=== PATIENT | female | born 1990 | race American Indian/Alaskan Native ===

== ENCOUNTER 2019-12-12 20:50 | Emergency (ER) | payer MEDICAID ==
[2019-12-12 23:25] LABS: Basophils # (Auto) 0.1 K/mm3 (0.0-0.1); Basophils % (Auto) 0.6 % (0.0-1.8); Eosinophils % (Auto) 0.1 % (0.0-4.3); Hematocrit 42.5 % (30.3-42.9); Hemoglobin 14.5 gm/dl (10.1-14.3); Lymphocytes # (Auto) 1.6 K/mm3 (1.2-5.4); Lymphocytes % (Auto) 14.4 % (13.4-35.0); Mean Corpuscular HGB Conc 34 % (30-34); Mean Corpuscular Volume 89 fl (79-97); Monocytes # (Auto) 0.8 K/mm3 (0.0-0.8); Monocytes % (Auto) 7.4 % (0.0-7.3); Platelet Count 261 K/mm3 (140-440); Red Blood Count 4.79 M/mm3 (3.65-5.03); Red Cell Distribution Width 15.2 % (13.2-15.2)
[2019-12-12 23:52] LABS: Blood Urea Nitrogen 7 mg/dL (7-17); Calcium 9.8 mg/dL (8.4-10.2); Hemolysis Index 11
[2019-12-12 23:58] LABS: BUN/Creatinine Ratio 12
--- NOTE | 2019-12-13 00:29 | XRay Report ---
CHEST 1 VIEW, 12/12/2019 11:07 PM CLINICAL INFORMATION/INDICATION: Chest pain COMPARISON: None FINDINGS: SUPPORT DEVICES: None. HEART: The cardiac silhouette is normal in size. LUNGS/PLEURA: The lungs are well expanded and appear clear. ADDITIONAL FINDINGS: No additional acute findings. IMPRESSION: 1. No evidence of acute cardiopulmonary process. Signer Name: Sravanthi Naranjo MD Signed: 12/13/2019 12:24 AM Workstation Name: [id number]
[2019-12-13 06:50] VITALS: BP 125/85
--- NOTE | 2019-12-13 09:47 | Emergency Department Report ---
ED General Adult HPI - General Chief complaint: Chest Pain Stated complaint: RAPID HEARTBEAT CHEST TIGHTNESS PUI?: No Time Seen by Provider: 12/13/19 07:22 Source: patient, RN notes reviewed Mode of arrival: Ambulatory Limitations: No Limitations - History of Present Illness Initial comments: The patient was evaluated in the emergency department for symptoms described in the history of present illness. He/she was evaluated in the context of the global COVID-19 pandemic, which necessitated consideration that the patient might be at risk for infection with the virus that causes COVID-19. Institutional protocols and algorithms that pertain to the evaluation of patients at risk for COVID-19 are in a state of rapid change based on information released by regulatory bodies including the CDC and federal and state organizations. These policies and algorithms were followed during the patient's care in the emergency department. Please note that these policies, procedures and recommendations changed on a rapid basis. The patient is a 29-year-old female. She is not known to myself previously. She is right-hand dominant. She states that she is not , does not take oral contraceptives, and denies DVT and pulmonary embolism risk factors. The patient presents to the ER today with complaints of nontraumatic and resolved bilateral wrist pain, and bilateral volar forearm swelling. This is now resolved. She denies headache, neck pain, chest pain, abdominal pain, shortness of breath, irritative and obstructive urinary symptoms. She denies unintentional weight loss. She has an outpatient primary care doctor whom she follows up with at [place]. The patient does endorse unintentional fine hair on her bilateral upper extremities, and she also endorses unintentional hair loss. This is been going on for a few weeks. At the moment, all of her acute symptoms are resolved, and she is asking to be discharged -: Sudden Location: left, right, upper extremity Radiation: non-radiation Severity scale (0 -10): 0 Consistency: now resolved Improves with: none Worsens with: none - Related Data Previous Rx's Medication Instructions Recorded Last Taken Type Famotidine [Pepcid] 20 mg PO BID #40 tablet 06/25/15 Unknown Rx Promethazine [Phenergan TAB] 25 mg PO Q6HR PRN #20 tab 06/25/15 Unknown Rx Mvit,Calcium,Iron,Mins/A.acids 1 each PO QDAY #30 capsule 12/13/19 Unknown Rx [[facility] Single Strength Capsule] Allergies Allergy/AdvReac Type Severity Reaction Status Date / Time No Known Allergies Allergy Verified 06/24/15 23:33 ED Review of Systems ROS: Stated complaint: RAPID HEARTBEAT CHEST TIGHTNESS Other details as noted in HPI Constitutional: denies: fever Eyes: denies: eye discharge ENT: denies: congestion Respiratory: denies: cough, shortness of breath Cardiovascular: denies: chest pain Gastrointestinal: denies: abdominal pain Genitourinary: denies: dysuria Musculoskeletal: arthralgia, myalgia Neurological: denies: weakness ED Past Medical Hx - Past Medical History Previous Medical History?: No - Surgical History Past Surgical History?: No - Social History Smoking Status: Never Smoker Substance Use Type: None - Medications Home Medications: Home Medications Medication Instructions Recorded Confirmed Last Taken Type Famotidine [Pepcid] 20 mg PO BID #40 tablet 06/25/15 Unknown Rx Promethazine [Phenergan TAB] 25 mg PO Q6HR PRN #20 tab 06/25/15 Unknown Rx Mvit,Calcium,Iron,Mins/A.acids 1 each PO QDAY #30 capsule 12/13/19 Unknown Rx [[facility] Single Strength Capsule] ED Physical Exam - General Limitations: No Limitations General appearance: alert, in no apparent distress - Head Head exam: Present: atraumatic, normocephalic - Eye Eye exam: Present: normal appearance, PERRL, EOMI. Absent: nystagmus - ENT ENT exam: Present: normal exam, normal orophraynx, mucous membranes moist, normal external ear exam - Neck Neck exam: Present: normal inspection, full ROM. Absent: tenderness, meningismus - Respiratory Respiratory exam: Present: normal lung sounds bilaterally. Absent: respiratory distress, wheezes, rales, rhonchi, stridor, decreased breath sounds - Cardiovascular Cardiovascular Exam: Present: regular rate, normal rhythm, normal heart sounds. Absent: bradycardia, tachycardia, irregular rhythm, systolic murmur, diastolic murmur, rubs, gallop - GI/Abdominal GI/Abdominal exam: Present: soft. Absent: distended, tenderness, guarding, rebound, rigid, pulsatile mass - Extremities Exam Extremities exam: Present: normal inspection, full ROM, normal capillary refill, other (2+ pulses noted in the bilateral upper and lower extremities. There is no palpable cord. negative Homans sign. Muscular compartments are soft. The pelvis is stable.). Absent: pedal edema, calf tenderness - Back Exam Back exam: Present: normal inspection, full ROM. Absent: tenderness, CVA tenderness (R), CVA tenderness (L), paraspinal tenderness, vertebral tenderness - Neurological Exam Neurological exam: Present: alert, oriented X3, normal gait, other (No facial droop. Tongue midline. Extraocular movements intact bilaterally. Facial sensation intact to light touch in V1, V2, V3 distribution bilaterally. 5 and a 5 strength in 4 extremities. Sensation intact to light touch in 4 extremities.). Absent: motor sensory deficit - Psychiatric Psychiatric exam: Present: normal affect, normal mood - Skin Skin exam: Present: warm, dry, intact, normal color. Absent: rash ED Course Vital Signs 12/12/19 12/13/19 21:06 06:48 Temperature 98.4 F Pulse Rate 124 H 67 Respiratory 18 16 Rate Blood Pressure 124/92 Blood Pressure 125/85 [Left] O2 Sat by Pulse 98 100 Oximetry ED Medical Decision Making - Lab Data Result diagrams: 12/12/19 22:50 12/12/19 22:50 Vital Signs 12/12/19 12/13/19 21:06 06:48 Temperature 98.4 F Pulse Rate 124 H 67 Respiratory 18 16 Rate Blood Pressure 124/92 Blood Pressure 125/85 [Left] O2 Sat by Pulse 98 100 Oximetry Lab Results 12/12/19 12/12/19 12/12/19 Range/Units 22:50 22:50 22:50 WBC 11.3 H (4.5-11.0) K/mm3 RBC 4.79 (3.65-5.03) M/mm3 Hgb 14.5 H (10.1-14.3) gm/dl Hct 42.5 (30.3-42.9) % MCV 89 (79-97) fl MCH 30 (28-32) pg MCHC 34 (30-34) % RDW 15.2 (13.2-15.2) % Plt Count 261 (140-440) K/mm3 Lymph % (Auto) 14.4 (13.4-35.0) % [place] % (Auto) 7.4 H (0.0-7.3) % Eos % (Auto) 0.1 (0.0-4.3) % Baso % (Auto) 0.6 (0.0-1.8) % Lymph # 1.6 (1.2-5.4) K/mm3 [place] # 0.8 (0.0-0.8) K/mm3 Eos # 0.0 (0.0-0.4) K/mm3 Baso # 0.1 (0.0-0.1) K/mm3 Seg Neutrophils % 77.5 H (40.0-70.0) % Seg Neutrophils # 8.7 H (1.8-7.7) K/mm3 Sodium 136 L (137-145) mmol/L Potassium 4.3 (3.6-5.0) mmol/L Chloride 97.7 L (98-107) mmol/L Carbon Dioxide 22 (22-30) mmol/L Anion Gap 21 mmol/L BUN 7 (7-17) mg/dL Creatinine 0.6 (0.6-1.2) mg/dL Estimated GFR > 60 ml/min BUN/Creatinine Ratio 12 % Glucose 108 H (65-100) mg/dL Calcium 9.8 (8.4-10.2) mg/dL Troponin T (0.00-0.029) ng/mL HCG, Qual Negative (Negative) 12/12/19 Range/Units 22:50 WBC (4.5-11.0) K/mm3 RBC (3.65-5.03) M/mm3 Hgb (10.1-14.3) gm/dl Hct (30.3-42.9) % MCV (79-97) fl MCH (28-32) pg MCHC (30-34) % RDW (13.2-15.2) % Plt Count (140-440) K/mm3 Lymph % (Auto) (13.4-35.0) % [place] % (Auto) (0.0-7.3) % Eos % (Auto) (0.0-4.3) % Baso % (Auto) (0.0-1.8) % Lymph # (1.2-5.4) K/mm3 [place] # (0.0-0.8) K/mm3 Eos # (0.0-0.4) K/mm3 Baso # (0.0-0.1) K/mm3 Seg Neutrophils % (40.0-70.0) % Seg Neutrophils # (1.8-7.7) K/mm3 Sodium (137-145) mmol/L Potassium (3.6-5.0) mmol/L Chloride (98-107) mmol/L Carbon Dioxide (22-30) mmol/L Anion Gap mmol/L BUN (7-17) mg/dL Creatinine (0.6-1.2) mg/dL Estimated GFR ml/min BUN/Creatinine Ratio % Glucose (65-100) mg/dL Calcium (8.4-10.2) mg/dL Troponin T < 0.010 (0.00-0.029) ng/mL HCG, Qual (Negative) - EKG Data -: EKG Interpreted by Me - EKG Data 12/13/19 09:45 Sinus rhythm, 88 bpm, normal axis, normal intervals, arrhythmia noted, not a STEMI. No prior for comparison. - Radiology Data Radiology results: report reviewed, image reviewed 1 view x-ray of the chest is negative for acute findings. - Medical Decision Making Differential diagnosis, including but not limited to: Arthritis, now resolved, general medical examination, thyroid derangement Assessment and plan: 29-year-old female, who is afebrile, with reassuring vital signs, with resolved tachycardia, who is not currently tachycardic, tachypneic or hypoxic, who denies DVT and pulmonary embolism risk factors, who is low risk by Wells criteria, low risk for major adverse cardiac event as per heart score, denies personal/family history of coronary artery disease, DVT and pulmonary embolism, with a primary complaint of bilateral wrist pain, now resolved, and bilateral subjective forearm swelling, now resolved. Her physical exam is benign and unremarkable. Laboratory studies, EKG, and x- ray of the chest were obtained prior to my personal evaluation of this patient. They are also benign and unremarkable. The patient denies unintentional weight loss, and her presentation at this time is not consistent with thyroid storm, or thyroid toxicosis. I did primary substance abuse counselor the patient on need to follow-up with an outpatient primary care doctor for further evaluation and management of her intermittent arthralgias, myalgias, and hair loss. On her physical examination, her scalp shows a mildly receding hairline, but a relatively full head of hair otherwise. She does appear to have fine hair on her arm. In any event, the patient does not appear to have an emergent medical condition present at this time, and she is medically suitable to follow-up with an outpatient primary care doctor Critical care attestation.: If time is entered above; I have spent that time in minutes in the direct care of this critically ill patient, excluding procedure time. ED Disposition Clinical Impression: History of arthritis, Myalgia, Hair loss Disposition: TO HOME OR SELFCARE Is pt being admited?: No Does the pt Need Aspirin: No Condition: Stable Instructions: Chronic Alopecia (ED) Additional Instructions: Please follow-up with your primary care doctor within the next 2 weeks. Please make certain to take a multivitamin on a daily basis. Please make certain to drink 4 to 6 cups of water per day, and consume plenty of fiber, vegetables, and lean protein. Please return to the emergency room right away with new pain, worsening pain, migration of pain, projectile vomiting, change in mental status, confusion, inability to tolerate liquid feeds, new, worsened or different symptoms not present on the initial emergency room evaluation. Referrals: MOON SANCHEZ MD [Staff Physician] - 7-10 days
== END 2019-12-13 09:55 | disposition home or self-care (01) ==
LOC: ED 20:50
DX: M79.10 Myalgia, unspecified site (principal); L65.9 Nonscarring hair loss, unspecified; M19.90 Unspecified osteoarthritis, unspecified site; Z79.899 Other long term (current) drug therapy
CPT/HCPCS: 36415; 71045; 80048; 84484; 84703; 85025; 93005